=== PATIENT | female | born 1965 | race Caucasian/White ===

== ENCOUNTER 2020-06-09 00:56 | Emergency (ER) | payer SELFPAY ==
[2020-06-09] VITALS (14 sets, daily range): BP systolic 124–158; BP diastolic 63–97; PULSE 61–112; RESP 18; TEMP 36.5; O2SAT 95–99
--- NOTE | 2020-06-09 01:06 | W.ED.GENAD ---
Discharge Plan Disposition Patient Disposition: HOME Condition: Good Discharge Details Clinical Impression: Headache, Elevated blood pressure reading Primary Care Provider: None,None ED Provider: Danish Alvarado Meds and New Rx's Prescriptions: Continued multivitamin Capsule 1 cap PO DAILY RF: 0 turmeric root extract 500 mg Capsule 500 mg PO DAILY RF: 0 Discharge Instructions Instructions: General Headache (ED) Additional Instructions: EKG, laboratory studies look fine. Chest x-ray with probable pneumatocele right lower lung. Blood pressures are elevated and we will need to get you follow-up with primary care. Care management should reach out to you to help facilitate making appointment. Return to ED for chest pain, persistent shortness of breath, neurologic change, other concerns. Stand Alone Forms: Work Release Referrals: Care Management [Provider Group] Medical Decision Making Patient presenting with headache but is not severe but has been lingering for the week. Some photophobia and nausea, patient complaining of elevated blood pressures but not convinced that has anything to do with a headache. She is neurologically intact. I am not concerned for meningitis, subarachnoid. Sounds migrainous in nature and will treat with IV Compazine. 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 In fact last time she seen her PCP is over 4 years ago. She does endorse some dyspnea on exertion this week. No chest pain or pressure. Will get EKG, basic labs and one troponin for screening. Contract runs through June in this area so we will have case management work on follow-up appointment with PCP while here. Patient's headache resolved with Compazine. EKG is normal. Laboratory studies are fine. Kidney function normal. Troponin negative. Chest x-ray unremarkable other than a probable thin-walled pneumatocele noted in right lung. Patient will be discharged home. May return to work tomorrow. Care management to help secure primary care and follow-up for potential hypertension with PCP here while working in the area. Lab Data Lab results reviewed: Yes I reviewed the patient's lab results. ECG Data Attestation: I personally reviewed and interpreted this ECG (s) as follows: Prior ECG tracings: not available for review Interpretation: see EKG HPI General Mode of arrival: ambulatory. Date/Time Provider Initiated Documentation: 06/09/20 01:06. Limitations to Documentation: no limitations. Information obtained by: patient and RN notes reviewed. HPI Narrative: Patient presents to ED with headache. Patient reports headache for the last week. Essentially constant. Typically gets headaches maybe once or twice a month that resolves with Tylenol. This headache will not resolve. It is not severe but she does have photophobia and nausea at times. She does not have a diagnosis of migraines. She has had no neurologic symptoms associated with the headache. She has been checking her blood pressures which have been elevated this last week. She does not have a history of high blood pressure. She also reports shortness of breath with exertion on and off this week. She denies having chest pain or pressure. She has no fever or cough. She has no leg swelling or leg pain. She does not have a primary care in this area as she is a traveler working as an aide at the [employer]. Related Data Home Medications Medication Instructions Recorded Confirmed multivitamin 1 cap PO DAILY 06/09/20 06/09/20 turmeric root extract 500 mg PO DAILY 06/09/20 06/09/20 Allergies Allergy/AdvReac Type Severity Reaction Status Date / Time Penicillins Allergy Intermediate Hives Unverified 06/09/20 01:07 General Stated Complaint: Headache RADAMES: 3 Review of Systems Narrative: As documented in HPI otherwise negative as below. Const: no fever, chills, weakness Resp: no cough, pleuritic pain CV: no CP, diaphoresis, edema, syncope GI: no abdominal pain, vomiting, diarrhea Neuro: no numbness, focal weakness, confusion [facility] Medical History No significant past medical history Surgical History History of section S/P gastric bypass S/P hysterectomy Social History Smoking/Tobacco Use Status: Current-Occasional Tobacco Type: cigarettes Smoking risk assessment performed?: Yes Alcohol Intake: current Alcohol Intake frequency: a few times a week Substance use type: does not use Do you feel safe at home: Yes Do you feel safe in your relationship?: Yes Exam Narrative Exam Narrative: Const: WDWN female in NAD. HEENT: NC/AT. Normal facial exam. Eyes: PERRL and EOMI. Normal conjunctiva and sclera. Neck: Supple. Trachea midline. Lungs: Normal respiratory effort. Lungs are clear. Cor: RRR without murmur/gallop. Good radial pulses. GI: Soft. NT/ND. No guarding or rebound. Neuro: A+O x 3. Normal speech, mentation, gait. Cranial nerves II - XII grossly intact. No gross motor or sensory deficit. Ext: No C/C/E. No calf tenderness. Skin: Warm and dry without rash. Course Vital Signs Vital signs: Vital Signs Temperature 97.7 F 06/09/20 01:01 Pulse 91 H 06/09/20 01:01 Respiratory Rate 18 06/09/20 01:01 Blood Pressure 158/91 H 06/09/20 01:01 Pulse Oximetry 98 06/09/20 01:01 Temperature 97.7 F 06/09/20 01:01 Temperature Source Skin 06/09/20 01:01 Pulse 91 H 06/09/20 01:01 Respiratory Rate 18 06/09/20 01:01 Respiratory Effort Non-Labored 06/09/20 01:05 Blood Pressure 158/91 H 06/09/20 01:01 Blood Pressure Position Sitting 06/09/20 01:01 Pulse Oximetry 98 06/09/20 01:01 Oxygen Delivery Method Room Air 06/09/20 01:01 Oxygen Flow Rate 0 06/09/20 01:01 Pain Level 8 06/09/20 01:01
--- NOTE | 2020-06-09 01:15 | RT.EKG_ITS ---
APPROVED REPORT Exam: Resting ECG Patient Location: E HR:73 bpm ECG Measurements Heart Rate 73 AXIS TX 170 P 35 QRSd 94 QRS 34 QT 376 T 57 QTc 414 Conclusion Sinus rhythm...normal P axis, V-rate 60- 99 Normal [place] Normal Electrocardiogram
[2020-06-09 01:46] LABS: Abs Immature Grans 0.04 10^3/uL (0.0-0.06); Absolute Basophil Count 0.05 10^3/uL (0.0-0.2); Absolute Eosinophil Count 0.15 10^3/uL (0.0-0.7); Absolute Lymphocyte Count 2.07 10^3/uL (1.2-3.4); Absolute Monocyte Count 0.71 10^3/uL (0.1-0.8); Absolute Neutrophil Count 4.68 10^3/uL (1.2-6.7); Basophils % 0.6; Eosinophils % 1.9; HCT 39.1 % (36.0-46.0); HGB 12.9 g/dL (11.2-15.7); Immature Grans % 0.5; Lymphocytes % 26.9; MCH 30.9 pg (27.0-33.0); MCV 93.8 fL (80-95); MPV 9.7 fL (8.0-11.0); Monocytes % 9.2; Neutrophils % 60.9; Nucleated RBC 0 %; Platelet Count 223 10^3/uL (130-400); RBC 4.17 10^6/uL (3.93-5.22); RDW 12.3 % (11.7-14.6); RDW-SD 42.6 fL
--- NOTE | 2020-06-09 01:57 | DI.RAD_ITS ---
EXAM: XR PORTABLE CHEST AP CLINICAL HISTORY: SOB TECHNIQUE: 2D digital imaging was performed. COMPARISON: No exams were available for comparison FINDINGS: LUNGS: Clear. Rounded thin rimmed lucent structure consistent with an incidental pneumatocele. No p leural abnormality seen. No pneumothorax. HEART: Normal. MEDIASTINUM: Normal. BONES: Unremarkable. IMPRESSION: No acute pulmonary findings. DATA REPOSITORY: RADIATION DOSE DELIVERED:
[2020-06-09] MEDS: Prochlorperazine 10 MG/2 ML VIAL IVP (01:58)
[2020-06-09] MEDS: Normal Saline Flush 10 ML SYR IVP (01:59)
[2020-06-09 02:04] LABS: Anion Gap 10.7 mmol/L (3-11); BUN 21 mg/dL (7-18); CO2 26.3 mmol/L (21.0-32.0); CREATININE 0.6 mg/dL (0.55-1.02); Calcium 8.5 mg/dL (8.5-10.1); Chloride 106 mmol/L (98-107); Glucose 100 mg/dL (74-106); Sodium 143 mmol/L (136-145)
[2020-06-09 02:09] LABS: Troponin I < 0.05 ng/mL (<0.06)
--- NOTE | 2020-06-09 02:19 | DI.VRAD_ITS ---
PROCEDURE INFORMATION: Exam: XR Chest, 1 View Exam date and time: 06/09/2020 1:57 AM Age: 55 years old Clinical indication: Shortness of breath TECHNIQUE: Imaging protocol: XR of the chest Views: 1 view. COMPARISON: No relevant prior studies available. FINDINGS: Lungs: No lung consolidation. No edema. Right lung base faint thin rimmed structure measuring 6.2 x 5.7 cm. This may represent a right lower lobe pneumatocele. Pleural spaces: Unremarkable. No pleural effusion. No pneumothorax. Heart/Mediastinum: Unremarkable. No cardiomegaly. Bones/joints: Degenerative thoracic spine changes. Previous left shoulder rotator cuff reattachment surgery. IMPRESSION: 1. No acute findings. 2. No acute lung infiltrates or consolidation. 3. Appearance of a thin walled cavity type structure over the right lower lung field. This may represent a small pneumatocele. 4. No pleural effusions. Dictated and Authenticated by: Manjinder Yusuf MD. Ordering:JADIEL Peng MD
--- NOTE | 2020-06-09 04:48 | NUR.NOTE ---
Nursing Note: Referral faxed 06/09/20 @ [phone] libl
--- NOTE | 2020-06-12 11:41 | CMPROGNOTE_ITS ---
- If Service Date Differs Date of service: 06/12/20 Time of Service: 11:41 Care Management Progress Note Haydee is seen in the ED on 06/09/2020 for a headache and possible hypertension. At the request of Dr. Alvarado, ED provider, [facility] coordinates a referral to Viviane Jauregui, Ph.D., [employer], of [facility], on-call provider, to assist Haydee in obtaining a follow-up appointment. 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
== END 2020-06-09 03:18 | disposition home or self-care (01) ==
PROVIDERS: Emergency Provider Emergency Medicine
DX: J98.4 Other disorders of lung (principal); R51.9 Headache, unspecified; R03.0 Elevated blood-pressure reading, without diagnosis of hypertension; R06.02 Shortness of breath
CPT/HCPCS: 80048; 93005; 96374; 99285; 71045; 84484; 85025; 93010; 99284; J0780